=== PATIENT | male | born 1985 | race Caucasian/White ===

== ENCOUNTER 2016-12-04 18:58 | Inpatient (IN) | payer MEDICAID ==
[~2016-12-04] VITALS: Ht 167.6 cm; Wt 59.0 kg
[~2016-12-04 18:58] MED LIST: RISP3 PO; SERT100T12 PO
[2016-12-04 19:13] VITALS: BP 121/80
[2016-12-04] MEDS ORDERED: HALOPERIDOL 5 MG TABLET PO PRN (19:15)
[2016-12-04] MEDS ORDERED: ZOLPIDEM TARTRATE 10 MG TABLET PO PRN (19:15)
[2016-12-04 20:36] VITALS: BP 121/80
[2016-12-05 08:01] VITALS: BP 125/77
[2016-12-05] MEDS: LORazepam 2 MG TABLET PO PRN (09:14)
[2016-12-05 16:12] VITALS: BP 138/88
[2016-12-05] MEDS: RisperiDONE 3 MG TABLET PO SCH (20:36)
[2016-12-05] MEDS ORDERED: ACETAMINOPHEN 325 MG TABLET PO PRN (21:00)
[2016-12-05] MEDS ORDERED: IBUPROFEN 400 MG TABLET PO PRN (21:00)
[2016-12-06 06:44] LABS: BASOPHILS # (AUTO) 0.03 K/uL (0.00-0.20); BASOPHILS % (AUTO) 0.5 % (0.0-2.0); EOSINOPHILS # (AUTO) 0.16 K/uL (0.00-0.70); EOSINOPHILS % (AUTO) 2.73 % (1.0-6.0); HEMATOCRIT 42.1 % (41-53); HEMOGLOBIN 13.9 g/dL (13.5-17.5); LYMPHOCYTES # (AUTO) 1.6 K/uL (1.0-4.8); LYMPHOCYTES % (AUTO) 27.8 % (22.0-44.0); MEAN CORPUSCULAR HEMOGLOBIN 31.1 pg (26.0-34.0); MEAN CORPUSCULAR VOLUME 94 fL (80-100); MONOCYTES # (AUTO) 0.5 K/uL (0.1-1.0); MONOCYTES % (AUTO) 7.6 % (2.0-9.0); NEUTROPHILS # (AUTO) 3.6 K/uL (1.8-7.7); NEUTROPHILS % (AUTO) 61.4 % (40.0-70.0); PLATELET COUNT (AUTO) 306 K/uL (150-450); RED BLOOD CELL COUNT(AUTO) 4.47 MIL/uL (4.50-5.90); RED CELL DISTRIBUTION WIDTH 12.9 % (11.5-14.5); WHITE BLOOD COUNT (AUTO) 5.9 K/uL (4.5-11.0)
[2016-12-06 07:18] LABS: ALANINE AMINOTRANSFERASE 21 U/L (12-78); ALBUMIN 3.3 g/dL (3.4-5.0); ANION GAP 10 mmol/L (8-16); ASPARTATE AMINOTRANSFERASE 9 U/L (15-37); BILIRUBIN,TOTAL 0.2 mg/dL (0.1-1.0); CALCIUM, TOTAL 8.9 mg/dL (8.8-10.5); CARBON DIOXIDE 25 mmol/L (22-29); CHLORIDE 103 mmol/L (98-107); CHOL/HDL RATIO 3.7 (4.2-7.3); CREATININE 0.82 mg/dL (0.60-1.30); GLOMERULAR FILTR. RATE CALC > 60 mL/min (>60); SODIUM SERUM 138 mmol/L (136-145); THYROID STIMULATING HORMONE 2.16 uIU/mL (0.36-3.74); UREA NITROGEN, BLOOD 13 mg/dL (7-18)
[2016-12-06 07:48] LABS: HEMOGLOBIN A1C 5.8 % (4.5-6.2)
[2016-12-06 08:01] VITALS: BP 119/72
[2016-12-06 10:05] VITALS: BP 119/72
[2016-12-06] MEDS: SERTRALINE HCL 100 MG TABLET PO SCH (10:05)
[2016-12-06 11:05] VITALS: BP 126/76
[2016-12-06 16:47] VITALS: BP 120/67
[2016-12-06] MEDS: RisperiDONE 3 MG TABLET PO SCH (21:59)
[2016-12-07 08:13] VITALS: BP 126/64
[2016-12-07] MEDS: SERTRALINE HCL 100 MG TABLET PO SCH (08:32)
[2016-12-07] MEDS: LORazepam 2 MG TABLET PO PRN (12:50)
[2016-12-07 16:30] VITALS: BP 115/59
[2016-12-07] MEDS: RisperiDONE 3 MG TABLET PO SCH (20:47)
[2016-12-08 08:30] VITALS: BP 115/53
[2016-12-08] MEDS: SERTRALINE HCL 100 MG TABLET PO SCH (10:44)
[2016-12-08] MEDS: LORazepam 2 MG TABLET PO PRN (16:38)
[2016-12-08] MEDS: RisperiDONE 3 MG TABLET PO SCH (20:38)
[2016-12-08 21:01] VITALS: BP 116/60
[2016-12-09 08:03] VITALS: BP 111/67
[2016-12-09] MEDS: SERTRALINE HCL 100 MG TABLET PO SCH (09:35)
[2016-12-09 16:35] VITALS: BP 117/57
[2016-12-09] MEDS: RisperiDONE 3 MG TABLET PO SCH (20:22)
[2016-12-10 08:03] VITALS: BP 113/72
[2016-12-10] MEDS: SERTRALINE HCL 100 MG TABLET PO SCH (08:59)
[2016-12-10 16:00] VITALS: BP 117/57
[2016-12-10] MEDS: LORazepam 2 MG TABLET PO PRN (16:24)
[2016-12-10] MEDS: RisperiDONE 3 MG TABLET PO SCH (22:07)
[2016-12-11 08:52] VITALS: BP 140/84
[2016-12-11] MEDS: SERTRALINE HCL 100 MG TABLET PO SCH (09:04)
== END 2016-12-11 15:15 | disposition home or self-care (01) | DRG 750 ==
LOC: 3EI 19:00
PROVIDERS: ADMIT Psychiatry & Neurology Psychiatry; ATTEND Psychiatry & Neurology Psychiatry
PROC: GZHZZZZ Group Psychotherapy (ICD-10-PCS; principal; 2016-12-05)
DX: F25.9 Schizoaffective disorder, unspecified (principal); R45.851 Suicidal ideations; Z59.0 Homelessness; R00.0 Tachycardia, unspecified; Z91.013 Allergy to seafood; Z79.899 Other long term (current) drug therapy
CPT/HCPCS: 83036; 84443